=== PATIENT | male | born 1970 | race Caucasian/White ===

== ENCOUNTER → 2020-02-16 11:01 | Outpatient (CLI) | payer OTHER, SELFPAY ==
--- NOTE | 2020-02-16 11:09 | DI.RAD.S_ITS ---
PROCEDURE: FL SHOULDER INJECTION MR/CT RT INDICATIONS: TEAR OF RIGHT GLENOID LABRUM COMPARISON: None. TECHNIQUE: The indications, alternatives, benefits, risks, and complications of the procedure were explained to the patient. Written informed consent was obtained and placed in the chart. The shoulder was examined fluoroscopically and a site for needle placement chosen for entry into the glenohumeral joint from an anterior approach. The skin was prepped and draped in a sterile fashion, and 1% lidocaine infiltrated from skin down to joint capsule. A spinal needle was inserted into the glenohumeral joint, and a small amount of iodinated contrast media injected to confirm intra-articular placement of the needle tip. This was followed by approximately 12 mL dilute solution of a gadolinium containing MR contrast agent. The needle was removed and a dressing was applied. The patient was given postprocedural instructions and sent to the MR suite for MR imaging. FINDINGS: A single fluoroscopic spot image demonstrates intra-articular location of injected iodinated contrast. IMPRESSION: Successful fluoroscopically guided administration of dilute Gadolinium solution into the shoulder joint for MR arthrogram. Dictated by: Victorino Wilson M.D. on 02/16/2020 at 12:33 Approved by: Victorino Wilson M.D. on 02/16/2020 at 12:33
--- NOTE | 2020-02-16 11:10 | DI.MRI.S_ITS ---
PROCEDURE: MR SHOULDER RT W CON INDICATIONS: TEAR OF RIGHT GLENOID LABRUM TECHNIQUE: After the administration of 12 mL of dilute intra-articular Gadolinium contrast, oblique coronal T1 and T2 spin echo with fat saturation, oblique sagittal T1 spin echo with and without fat saturation, oblique sagittal T2 fast spin echo with fat saturation, axial T1 spin echo with fat saturation through the shoulder. COMPARISON: None. FINDINGS: Image quality: Excellent. Rotator cuff: There is a full-thickness tear of the supraspinatus at its insertion involving the anterior fibers. This measures approximately 1.4 cm in anteroposterior dimension. There is associated mild tendinous retraction by approximately 0.5 cm. Moderate to severe articular surface tearing is also demonstrated more posteriorly in the supraspinatus extending into the infraspinatus. There is moderate articular surface partial tearing involving the superior fibers of the subscapularis. The teres minor appears intact. No rotator cuff muscle atrophy on sagittal images. Bones and bursae: No bone marrow contusions or fractures. There is moderate to severe acromioclavicular joint degeneration. The acromion demonstrates conventional anatomy, without an os acromiale. There is fluid in the subacromial/subdeltoid bursa communicating with the glenohumeral joint. Capsule and soft tissues: There is irregular tearing of the superior and posterosuperior labrum. There is also mild tearing of the anteroinferior labrum. The glenohumeral ligaments appear intact. The long head of the biceps tendon is ruptured from its anchor with retraction distally. No definite intra-articular bodies. IMPRESSION: 1. Tearing of the rotator cuff as described including a full-thickness tear at the insertion of the supraspinatus as well as moderate partial thickness tearing of the infraspinatus and subscapularis. No fatty muscle atrophy. 2. Moderate to severe acromioclavicular joint degeneration. 3. Rupture of the long head of the biceps tendon from its anchor with retraction distally. 4. Tearing of the superior and posterosuperior labrum as well as the anteroinferior labrum. Dictated by: Kehinde Gustafson M.D. on 02/16/2020 at 13:27 Approved by: Kehinde Gustafson M.D. on 02/16/2020 at 13:34
== END ==
PROVIDERS: Referring Provider Orthopaedic Surgery; Visit Provider Orthopaedic Surgery
DX: S43.431A Superior glenoid labrum lesion of right shoulder, initial encounter (principal); S46.111A Strain of muscle, fascia and tendon of long head of biceps, right arm, initial encounter; S46.012A Strain of muscle(s) and tendon(s) of the rotator cuff of left shoulder, initial encounter; M19.011 Primary osteoarthritis, right shoulder; X58.XXXA Exposure to other specified factors, initial encounter
CPT/HCPCS: 23350; 73222; 77002